=== PATIENT | female | born 1975 | race Asian ===

== ENCOUNTER 2017-09-06 09:58 | Day surgery (SDC) | payer OTHER ==
[2017-09-06] MEDS ORDERED: MIDAZOLAM 1 MG/ML 2 ML INJ ×2 (11:56)
[2017-09-06] MEDS ORDERED: FENTAnyl 50 MCG/ML VIAL (11:56)
== END 2017-09-06 13:41 | disposition home or self-care (01) ==
LOC: GIL 09:58
DX: R19.5 Other fecal abnormalities (principal); K62.1 Rectal polyp; K64.4 Residual hemorrhoidal skin tags
CPT/HCPCS: 45380; 84703; 88305